=== PATIENT | male | born 1960 | race American Indian/Alaskan Native ===

== ENCOUNTER 2020-06-26 11:07 | Emergency (ER) | payer MEDICARE ==
--- NOTE | 2020-06-26 12:34 | Event Note ---
ED Screening Note ED Screening Note: states he has elevated BP he has decreased appetite states not having BM secondary to no appetite he takes amlodipine 10 mg and hctz 25mg states he has a primary care doctor in [place] states he last saw his PCP in [place] and reports his BP was high then states he at [facility] for depression and schizophrenia This initial assessment/diagnostic orders/clinical plan/treatment(s) is/are subject to change based on patients health status, clinical progression and re- assessment by fellow clinical providers in the ED. Further treatment and workup at subsequent clinical providers discretion. Patient/guardian urged not to elope from the ED as their condition may be serious if not clinically assessed and managed. Initial orders include: labs, UA
[2020-06-26 14:28] LABS: Basophils # (Auto) 0.1 K/mm3 (0.0-0.1); Basophils % (Auto) 2.2 % (0.0-1.8); Eosinophils # (Auto) 0.2 K/mm3 (0.0-0.4); Eosinophils % (Auto) 3.8 % (0.0-4.3); Hematocrit 52.9 % (35.5-45.6); Hemoglobin 17.7 gm/dl (11.8-15.2); Lymphocytes # (Auto) 1.7 K/mm3 (1.2-5.4); Lymphocytes % (Auto) 32.6 % (13.4-35.0); Mean Corpuscular HGB Conc 33 % (32-34); Mean Corpuscular Volume 93 fl (84-94); Monocytes # (Auto) 0.6 K/mm3 (0.0-0.8); Monocytes % (Auto) 10.9 % (0.0-7.3); Platelet Count 270 K/mm3 (140-440); Red Blood Count 5.72 M/mm3 (3.65-5.03); Red Cell Distribution Width 13.4 % (13.2-15.2)
[2020-06-26] MEDS ORDERED: cloNIDine 0.2 MG TAB PO ONE (14:40)
[2020-06-26] MEDS ORDERED: ACETAMINOPHEN 325 MG TAB PO ONE (14:45)
--- NOTE | 2020-06-26 14:45 | Emergency Department Report ---
ED General Adult HPI - General Chief complaint: High BP Stated complaint: HBP/NO APPETITE Time Seen by Provider: 06/26/20 12:32 Source: patient Mode of arrival: Ambulatory Limitations: No Limitations - History of Present Illness Initial comments: 60-year-old -[place] male presents to the emergency room for elevated blood pressure. Patient is currently at [facility] for depression and schizophrenia. Patient states that he has seen his primary care provider who is Shivani Grossman nurse practitioner in March 2020. And amlodipine 10 mg daily for blood pressure. Patient takes Seroquel 400 mg nightly OxyContin 5/3 25 mg gabapentin 600 mg trazodone 100 mg and omeprazole 20 mg. Patient admits to nausea and vomiting. He says he drinks socially smokes cigarettes and smokes marijuana. Onset/Timin -: days(s) Location: head Severity scale (0 -10): 5 Quality: aching Consistency: constant Improves with: none Worsens with: none Associated Symptoms: loss of appetite, nausea/vomiting. denies: chest pain, cough, diaphoresis, fever/chills, rash, seizure, shortness of breath, syncope, weakness Treatments Prior to Arrival: none - Related Data Allergies Allergy/AdvReac Type Severity Reaction Status Date / Time No Known Allergies Allergy Unverified 06/26/20 12:14 ED Review of Systems ROS: Stated complaint: HBP/NO APPETITE Other details as noted in HPI Comment: All other systems reviewed and negative ED Past Medical Hx - Past Medical History Hx Hypertension: Yes Additional medical history: HEP C SPINAL STENOSIS - Surgical History Additional Surgical History: BACK SURG - Social History Smoking Status: Current Every Day Smoker Substance Use Type: Alcohol ED Physical Exam - General Limitations: No Limitations General appearance: alert, in no apparent distress - Head Head exam: Present: atraumatic, normocephalic - Eye Eye exam: Present: normal appearance - ENT ENT exam: Present: normal exam, mucous membranes moist, normal external ear exam - Neck Neck exam: Present: normal inspection - Respiratory Respiratory exam: Present: normal lung sounds bilaterally. Absent: respiratory distress - Cardiovascular Cardiovascular Exam: Present: regular rate, normal rhythm. Absent: systolic murmur, diastolic murmur, rubs, gallop - GI/Abdominal GI/Abdominal exam: Present: soft, normal bowel sounds - Rectal Rectal exam: Present: deferred - Extremities Exam Extremities exam: Present: normal inspection - Back Exam Back exam: Present: normal inspection, full ROM - Neurological Exam Neurological exam: Present: alert, oriented X3, normal gait - Psychiatric Psychiatric exam: Present: normal affect, normal mood - Skin Skin exam: Present: warm, dry, intact, normal color. Absent: rash ED Course Vital Signs 06/26/20 06/26/20 06/26/20 12:16 15:22 15:25 Temperature 98.6 F Pulse Rate 98 H 88 88 Respiratory 18 15 Rate Blood Pressure 173/119 191/113 Blood Pressure 191/113 [Right] O2 Sat by Pulse 98 99 Oximetry ED Medical Decision Making - Lab Data Result diagrams: 06/26/20 13:59 06/26/20 13:59 Critical care attestation.: If time is entered above; I have spent that time in minutes in the direct care of this critically ill patient, excluding procedure time. ED Disposition Clinical Impression: HTN, goal below 150/90 Disposition: DC-01 TO HOME OR SELFCARE Is pt being admited?: No Does the pt Need Aspirin: No Condition: Stable Instructions: Hypertension (ED), Hypertension, Adult, [id number] Additional Instructions: Continue with your chronic blood pressure medication and follow-up with your doctor this week. Referrals: DELMA GONG [Other] - 3-5 Days Forms: Work/School Release Form(ED)
[2020-06-26 14:54] LABS: Alanine Aminotransferase 23 units/L (7-56); Albumin 4.7 g/dL (3.9-5); BUN/Creatinine Ratio 18; Blood Urea Nitrogen 14 mg/dL (9-20); Calcium 9.8 mg/dL (8.4-10.2); Hemolysis Index 82
[2020-06-26] MEDS ORDERED: SODIUM CHLORIDE 0.9% 1000 ML 1,000 ML IV ONE (15:11)
[2020-06-26 15:21] LABS: Bilirubin,Urine NEG (Negative); Blood,Urine NEG (Negative); Color,Urine Yellow (Yellow); Mucus,Urine FEW /HPF; Protein,Urine <15 mg/dL mg/dL (Negative)
--- NOTE | 2020-06-26 15:33 | Cat Scan Report ---
CT head/brain wo con INDICATION / CLINICAL INFORMATION: 60 years Male; Headache with hypertension urgency. TECHNIQUE: Routine CT head without contrast. All CT scans at this location are performed using CT dos e reduction for ALARA by means of automated exposure control. COMPARISON: None. FINDINGS: BRAIN / INTRACRANIAL CONTENTS: There is moderate cerebral white matter disease most consistent with m icrovascular angiopathy. The findings include an 8 mm focus of decreased attenuation along the left c ada radiata which would also appear to be chronic though correlation would be needed. There is no c lear CT evidence of acute intracranial hemorrhage or significant mass effect. ORBITS: No significant abnormality of visualized orbits. SINUSES / MASTOIDS: No significant abnormality in the visualized paranasal sinuses or mastoid air taylor ls. CRANIOCERVICAL JUNCTION: No significant abnormality. ADDITIONAL FINDINGS: None. IMPRESSION: 1. 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 2. There is no clear CT evidence of acute intracranial hemorrhage. Signer Name: Mamadou Linton MD Signed: 06/26/2020 3:29 PM Workstation Name: [id number]
[2020-06-26 17:30] VITALS: BP 152/83
== END 2020-06-26 17:37 | disposition home or self-care (01) ==
LOC: ED 11:07
DX: I10 Essential (primary) hypertension (principal); R63.0 Anorexia; R11.2 Nausea with vomiting, unspecified; R51.9 Headache, unspecified; F17.200 Nicotine dependence, unspecified, uncomplicated; Z98.890 Other specified postprocedural states
CPT/HCPCS: 36415; 70450; 80053; 81001; 82550; 83735; 85025; 96360; 96361; 99284; J7030